=== PATIENT | male | born 1945 | race Caucasian/White ===

== ENCOUNTER 2025-02-04 13:34 | Outpatient (REF) | payer OTHER, SELFPAY ==
--- OUTSIDE RECORDS SUMMARY | 2025-02-01 11:00 | XMS_ITS | Encounter Summary ---
Author Organization [facility] Address [address] [place] [address] Phone Care Team Providers Care Coal Getter Name Role Phone Ld Thorne MD Primary Care Provider + Kody Grady MD Unavailable [phone] Morena Gongora Unavailable [phone] Reason for Referral * Consultation (Within 1 month) - New Request Specialty Diagnoses / Procedures Referred By Tyrone tao Referred To Contact Endocrinology Diagnoses Thyroid nodule Morena Gongora MBBS [address] [place] [address] Phone: tel: fax: mailto:[email or web address] [address] [place] [address] Phone: tel: Referral ID Status Reason Start Date Expiration Date V isits Requested Visits Authorized [id number] New Request 02/01/2025 02/01/2026 1 1 * MRI/CAT Scan - New Request Specialty Diagnoses / Procedures Referred By Tyrone tao Referred To Contact Radiology Diagnoses Marginal zone B-cell lymphoma Procedures CT Neck Morena Gongora MBBS [address] [place] [address] Phone: tel: fax: mailto:[email or web address] Referral ID Status Reason Start Date Expiration Date V isits Requested Visits Authorized [id number] New Request 02/01/2025 1 1 * MRI/CAT Scan - New Request Specialty Diagnoses / Procedures Referred By Contac t Referred To Contact Radiology Diagnoses Marginal zone B-cell lymphoma Procedures CT Abdomen/Pelvis Morena Gongora MBBS [address] [place] [address] Phone: tel: fax: mailto:[email or web address] Referral ID Status Reason Start Date Expiration Date V isits Requested Visits Authorized [id number] New Request 02/01/2025 1 1 * MRI/CAT Scan - New Request Specialty Diagnoses / Procedures Referred By Contac t Referred To Contact Radiology Diagnoses Marginal zone B-cell lymphoma Procedures CT Chest Morena Gongora MBBS [address] [place] [address] Phone: tel: fax: mailto:[email or web address] Referral ID Status Reason Start Date Expiration Date V isits Requested Visits Authorized [id number] New Request 02/01/2025 1 1 Reason for Visit * Reason Comments Follow Up Visit Encounter Details Date Type Department Care Team (Late st Contact Info) Description 02/01/2025 11:00 AM EST Office Visit [facility] [address] [place] [address] Morena Gongora MBBS [address] [place] [address] [email or web address] Marginal zone B-cell lymphoma (Primary Dx); Thyroid nodule Social History Tobacco Use Types Packs/Day Years Used Date Smoking Tobacco: Former Cigars 1 1998 Smokeless Tobacco: Never Comments:1.5 ppd Alcohol Use Standard Drinks/Week Comments Never 0 (1 standard drink = 0.6 oz pure alcohol) occasional; moderate in the past Education Answer Date Recorded Are you interested in more education? Not on ludin e 07/26/2022 Are you concerned about learning? Not on file 07/26/2022 No 07/26/2022 No 07/26/2022 Digital Access Answer Date Recorded No 08/22/2022 No 08/22/2022 Reliable internet access at home? Not on file 08/22/2022 Device with a working camera? Not on file Intimate Partner Violence Answer Date R ecorded Are you denied basic needs s uch as food, clothing, or medical care? No 05/28/2022 In the past 12 months have y ou been in a relationship with a person who hurts, threatens, or tries to control you? No 05/28/2022 Are you denied basic needs s uch as food, clothing, or medical care? No 05/28/2022 In the past 12 months have y ou been in a relationship with a person who hurts, threatens, or tries to control you? 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 Not on file Not on file Not on file documented as of this encounter Last Filed Vital Signs Vital Sign Reading Time Taken Comments Blood Pressure 149/70 02/01/2025 10:45 AM EST Pulse 52 02/01/2025 10:45 AM EST Temperature 36.1 C (97 F) 02/01/2025 10:45 AM EST Respiratory Rate - - Oxygen Saturation 98% 02/01/2025 10: 45 AM EST Inhaled Oxygen Concentration - - Weight 68.9 kg (151 lb 12.8 oz) 025 10:45 AM EST Height 167.8 cm (5' 6.06 ) 02/01/2025 1 0:45 AM EST Body Mass Index 24.45 02/01/2025 10:45 AM EST documented in this encounter Progress Notes * Morena Gongora MBBS - 02/01/2025 11:00 AM EST Medical Oncology/Hematology Note Medical Oncologist: DHARA Gramajo Referring Provider: Morena Gongora MBBS 02/01/2025 PATIENT ID: Steven Toledo REASON FOR VISIT: Chief Complaint Patient presents with Follow Up Visit DIAGNOSIS: 05/28/2022: 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 CURRENT TREATMENT: Surveillance as per NCCN guidelines TREATMENT HISTORY: 07/06/2022 - 03/08/2023: Single agent rituximab weekly x 4 followed by 4 maintenance doses every 2 months. Oncology History Overview Note 05/08/2023 scans: No LAD/splenomegaly 04/29/2023 follow up thyroid US: L lobe nodule 12 mm-->10 mm. No FNA recommended 11/20/2023 CT scans:No LAD/splenomegaly 07/20/2024: Surveillance CT scans: No LAD/splenomegaly 01/26/2025: Surveillance CT scans: CT neck report is back. No lAD. Left thyroid lobe nodule, unchanged. No abdominal or pelvic lymphadenopathy. No splenomegaly. Increased size of a left supraclavicular lymph node. New clustered nodularity in the left lower lobe, favors an infectious/inflammatory etiology such as aspiration. Consider a follow-up low-dose chest CT in 3 months or as per clinical protocol. Lymph Nodes: Increased left supraclavicular lymph node measuring 12 mm (4:65), previously 7 mm. Marginal zone B-cell lymphoma 06/09/2022 Initial Diagnosis Marginal zone B-cell lymphoma 07/06/2022 - 07/27/2022 Systemic Therapy Palliative; RITUXIMAB (IV/SC) WEEKLY Kody Grady MD 09/21/2022 - 03/08/2023 Systemic Therapy Palliative; RITUXIMAB (IV/SC) MAINTENANCE EVERY 8 WEEKS Kody Grady MD HISTORY OF PRESENT ILLNESS: 07/30/2024: Steven is a 79 y.o. male who returns for follow-up regarding the above-mentioned accompanied by a friend. Patient Sister was over the phone. Please see above for details regarding his prior evaluations, treatment history and updates. He is hard of hearing. Over the last few months he has been experiencing numbness of his right hand and right lower extremity causing some unsteadiness issues for which he is scheduled to see neurology soon. He recently underwent surveillance CT scans. He reports chronic bilateral ankle swelling, stable. He denies any fever, chills, night sweats or any palpable lymphadenopathy. He denies any other complaints today. FAMILY HISTORY/SOCIAL HISTORY: Lives by himself No children. Has 1 sister Smoking: Quit 50 years ago Etoh: Occasionally ALLERGIES: No Known Allergies MEDICATIONS: Current Outpatient Medications Medication Sig Dispense Refill Last Dispense acetaminophen (TYLENOL) 325 mg tablet Take 2 tablets (650 mg total) by mouth every 6 (six) hours asneeded for mild pain. 0 Unknown (outside pharmacy) amLODIPine (NORVASC) 10 MG tablet Take 10 mg by mouth daily. Unknown (patient-reported) hydroCHLOROthiazide (HYDRODIURIL) 12.5 MG tablet Take 12.5 mg by mouth daily. Unknown (patient-reported) lisinopril (PRINIVIL,ZESTRIL) 10 MG tablet Take 10 mg by mouth daily. Unknown (patient-reported) METOPROLOL TARTRATE ORAL Take 50 mg by mouth 2 (two) times a day. Unknown (patient-reported) pravastatin (PRAVACHOL) 20 MG tablet Take 20 mg by mouth daily. Unknown (patient-reported) No current facility-administered medications for this visit. Past Medical History: Diagnosis Date COVID-19 04/24/2022 paxlovid no long haul lab tab Hearing loss bilateral hearing aids that do not work well at all Hyperlipidemia Hypertensive disorder Pericardial effusion 1979 recovered fine no issues SBO (small bowel obstruction) Family History Problem Relation Age of Onset Pancreatic cancer Mother Breast cancer Sister Social History Socioeconomic History Marital status: Single Spouse name: Not on file Number of children: Not on file Years of education: Not on file Highest education level: Not on file Occupational History Occupation: paving--retired Tobacco Use Smoking status: Former Types: Cigars Start date: 1964 Quit date: 1998 Years since quittin.8 Smokeless tobacco: Never Tobacco comments: 1.5 ppd Vaping Use Vaping status: never used Substance and Sexual Activity Alcohol use: Never Comment: occasional; moderate in the past Drug use: Never Sexual activity: Not on file Other Topics Concern Not on file Social History Narrative Not on file REVIEW OF SYSTEMS: As noted above. A 10 point review of system was otherwise unremarkable VITALS SIGNS: Vitals: 02/01/25 1045 BP: (!) 149/70 BP Location: Left arm Patient Position: Sitting Cuff Size: Medium Pulse: (!) 52 Temp: 36.1 ??C (97 ??F) TempSrc: Tympanic SpO2: 98% Weight: 68.9 kg (151 lb 12.8 oz) Height: 167.8 cm (5' 6.06 ) PHYSICAL EXAM: General appearance - alert, well appearing, and in no distress Mental status - alert, oriented to person, place, and time Eyes - sclera anicteric Mouth - mucous membranes moist, pharynx normal without lesions Neck - supple, no significant adenopathy Lymphatics - no palpable lymphadenopathy Chest - clear to auscultation, no wheezes, rales or rhonchi, symmetric air entry Heart - normal rate, regular rhythm, normal S1, S2 Abdomen - soft, nontender, nondistended, no masses or organomegaly Neurological - alert, oriented, normal speech, no focal findings or movement disorder noted Extremities -+ b/l ankle edema LABS: CBC: \ / / \ No CBC past 72hr BMP: / \ No BMP past 72hr CBC Diff: Lab Results Component Value Date MCV 87.7 01/26/2025 MCH 28.6 01/26/2025 MCHC 32.7 01/26/2025 RDW 13.3 01/26/2025 MVP 9.3 01/26/2025 NRBCA 0.00 01/26/2025 DIFMET Auto 01/26/2025 NEUT 75.2 01/26/2025 LYMP 13.7 (L) 01/26/2025 MON 7.7 01/26/2025 EOSP 2.4 01/26/2025 ANEU 8.25 (H) 01/26/2025 ALYMP 1.50 01/26/2025 AMONS 0.84 01/26/2025 AEOSN 0.26 01/26/2025 ABASOP 0.07 01/26/2025 Coagulation: Cardiac markers: LFTs: RADIOLOGY: 07/20/2024: CT scan of the neck chest abdomen and pelvis Stable exam. Diverticulosis, severe atherosclerotic disease and slightly enlarged prostate gland issimilar to previous exams. No adenopathy or splenomegaly. No evidence of intrathoracic lymphadenopathy. No cervical adenopathy. 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 History of thyroid nodule DISCUSSION: I discussed all her impression, natural history disease, prognosis and further management in this regard. Low-grade lymphomas are generally incurable with conventional chemotherapy options although patientachieves remission with available standard treatment options. Patient responded very well to single agent Rituxan therapy and achieved complete remission and I reassured him about this. 07/20/2024: Surveillance CT scans did not show any evidence of lymphoma recurrence. 01/26/2025: Surveillance CT scans. CT neck did not show any lymphadenopathy. Thyroid nodule was stable. Some increase in the size of left supraclavicular lymph node, not clinically significant. Patient has been doing very well from oncological standpoint without any evidence of lymphoma recurrence and I reassured him about this. I discussed surveillance as per NCCN guidelines. RECOMMENDATIONS: I will follow-up on the official reading of his CT scans Thyroid nodule has been stable although I recommended endocrinology consultation in this regard forany future follow-ups Next surveillance CT scans in 6 months Return for follow-up in 6 months with labs and CT scans Thank you very much for allowing me to participate in this patient's care Relevant Orders Comprehensive Metabolic Panel (CMP) CBC and Differential Lactate Dehydrogenase (LDH) CT Chest CT Abdomen/Pelvis CT Neck Endocrine Thyroid nodule Relevant Orders Ambulatory referral to [facility] Endocrinology I spent more than 30 minutes during this consultation and more than half of this time was spent in direct jyry-rm-soct counseling and coordination of care. Time spent face to face, 15 minutes. Xdp-prfc-nn-face time spent, 15 minutes. I have maintained a long-term, longitudinal relationship with this patient, overseeing care of chronic conditions, including Lymphoma. This care relationship has significantly influenced my decision-making and treatment plans during today's encounter. 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 History of thyroid nodule DISCUSSION: I discussed all her impression, natural history disease, prognosis and further management in this regard. Low-grade lymphomas are generally incurable with conventional chemotherapy options although patientachieves remission with available standard treatment options. Patient responded very well to single agent Rituxan therapy and achieved complete remission and I reassured him about this. 07/20/2024: Surveillance CT scans did not show any evidence of lymphoma recurrence. 01/26/2025: Surveillance CT scans. CT neck did not show any lymphadenopathy. Thyroid nodule was stable. Some increase in the size of left supraclavicular lymph node, not clinically significant. Patient has been doing very well from oncological standpoint without any evidence of lymphoma recurrence and I reassured him about this. I discussed surveillance as per NCCN guidelines. RECOMMENDATIONS: I will follow-up on the official reading of his CT scans Thyroid nodule has been stable although I recommended endocrinology consultation in this regard forany future follow-ups Next surveillance CT scans in 6 months Return for follow-up in 6 months with labs and CT scans Thank you very much for allowing me to participate in this patient's care documented in this encounter Plan of Treatment Upcoming Encounters Date Type Department Care Team (Late st Contact Info) Description 02/01/2025 Procedure Pass , Ct Scan - [address] [address] 02/01/2025 Procedure Pass [address] [address] 02/01/2025 Procedure Pass [address] [address] 07/21/2025 12:15 PM EDT Appointment [address] [address] Morena Gongora MBBS [address] [place] [id number] [email or web address] 08/02/2025 10:40 AM EDT Office Visit [facility] at [address] [address] Morena Gongora MBBS [address] [place] [phone] [email or web address] Scheduled Orders Name Type Priority Associated Diagnoses Orde r Schedule Comprehensive Metabolic Panel (CMP) Lab Routine Marginal zone B-cell lymphoma Expected: 07/31/2025 (Approximate), Expires: 10/29/2025 CBC and Differential Lab Routine Marginal zone B-cell lymphoma Expected: 07/31/2025 (Approximate), Expires: 10/29/2025 Lactate Dehydrogenase (LDH) Lab Routine Marginal zone B-cell lymphoma Expected: 07/31/2025 (Approximate), Expires: 10/29/2025 CT Chest Imaging Routine Marginal zone B-cell lymphoma Expected: 07/31/2025 (Approximate), Expires: 10/29/2025 CT Abdomen/Pelvis Imaging Routine Marginal zone B-cell lymphoma Expected: 07/31/2025 (Approximate), Expires: 10/29/2025 CT Neck Imaging Routine Marginal zone B-cell lymphoma Expected: 07/31/2025 (Approximate), Expires: 02/01/2026 Scheduled Referrals Name Type Priority Associated Diagnoses Order Schedule Ambulatory referral to [facility] Endocrinology Outpatient Referral Routine Thyroid nodule Ordered: 02/01/2025 documented as of this encounter Visit Diagnoses Diagnosis Marginal zone B-cell lymphoma- Primary Thyroid nodule Nontoxic uninodular goiter documented in this encounter Care Teams Coal Getter Relationship Specialty Start Date End Date Ld Thorne MD [address] [place] [address] PCP - General Internal Medicine 05/13/21 Kody Grady MD [address] [place] [address] [address] [place] [address] [email or web address] Primary Oncologist Medical Oncology 05/16/22 Morena Gongora MBBS [address] [place] [address] [email or web address] Internal Medicine 01/25/25 documented as of this encounter Additional Source Comments The information contained in this document represents components of the legal health record. It is not the complete legal health record.[facility]
--- NOTE | 2025-02-04 | EMG_ITS ---
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 Right peroneal and tibial motor studies were performed. Right median and ulnar mixed sensory, radial sensory, superficial peroneal and sural sensory studies were performed and tibial H-reflex was performed. Paraspinal muscles were tested with EMG. Findings: Right median motor distal latencies was moderately prolonged with corresponding moderate prolongation of right median mixed distal latencies. Median mixed conduction velocity was moderately slow. Right peroneal motor amplitude was uutrgrho-mm-omctkc early diminished. Right sural response was absent. Tibial H-reflex was absent. Impression: 1. Sztj-ma-pcoojbtv right median neuropathy across carpal tunnel 2. Flpo-kx-ozrzigow axonal sensory motor peripheral neuropathy Codin 10[address] x2 MTDD
--- OUTSIDE RECORDS SUMMARY | 2025-02-04 16:30 | XMS_ITS | Encounter Summary ---
Author Organization [facility] Address [address] [place] [address] Phone Care Team Providers Care Registered Travel Nurse Name Role Phone Ld Thorne MD Primary Care Provider + Kody Grady MD Unavailable [phone] Jes Godoy NP Unavailable [phone] Morena Gongora MBBS Unavailable [phone] Encounter Details Date Type Department Care Team (Late st Contact Info) Description 03/07/2023 Procedure Pass [facility], Ct Scan - [address] [address] Social History Tobacco Use Types Packs/Day Years Used Date Smoking Tobacco: Former Cigars 1 965 - 1998 Smokeless Tobacco: Never Comments:1.5 ppd Alcohol [...] on file documented as of this encounter Plan of Treatment Upcoming Encounters Date Type Department Care Team (Late st Contact Info) Description 02/01/2025 Procedure Pass [address] [address] 02/01/2025 Procedure Pass [address] [address] 02/01/2025 Procedure Pass [address] [address] 07/21/2025 12:15 PM EDT Appointment [address] [address] Morena Gongora MBBS [address] [place] [phone] [email or web address] 08/02/2025 10:40 AM EDT Office Visit [facility] at [address] [address] Morena Gongora MBBS [address] [place] [address] [email or web address] documented as of this encounter Visit Diagnoses Not on filedocumented in this encounter Care Teams Registered Travel Nurse Relationship Specialty Start Date End Date Ld Thorne MD [address] [place] [address] PCP - General Internal Medicine 05/13/21 Kody Grady MD [address] [place] [address] [address] [place] [address] [email or web address] Primary Oncologist Medical Oncology 05/16/22 Jes Godoy NP [address] [place] [address] [email or web address] Nurse Practitioner Medical Oncology 06/29/22 04/01/24 Morena Gongora MBBS [address] [place] [phone] [email or web address] Internal Medicine 01/25/25 documented as of this encounter Additional Source Comments The information contained in this document represents components of the legal health record. It is not the complete legal health record.[facility]
--- OUTSIDE RECORDS SUMMARY | 2025-02-04 16:30 | XMS_ITS | Encounter Summary ---
Author Organization [facility] Address [address] [place] [address] Phone Care Team Providers Care Carpenter Assistant Name Role Phone Ld Thorne MD Primary Care Provider + Kody Grady MD Unavailable [phone] Morena Gongora Unavailable [phone] Encounter Details Date Type Department Care Team (Late st Contact Info) Description 07/30/2024 Procedure Pass [facility], Ct Scan - [facility] [address] [place] [address] Social History Tobacco Use Types Packs/Day Years Used Date Smoking Tobacco: Former Cigars 1998 Smokeless Tobacco: Never Comments:1.5 ppd Alcohol [...] st Contact Info) Description 02/01/2025 Procedure Pass [address] [address] 02/01/2025 Procedure Pass [address] [address] 02/01/2025 Procedure Pass [address] [address] 07/21/2025 12:15 PM EDT Appointment [address] [address] Morena Gongora MBBS [address] [place] [phone] [email or web address] 08/02/2025 10:40 AM EDT Office Visit [facility] at [address] [address] Morena Gongora MBBS [address] [place] [phone] [email or web address] documented as of this encounter Visit Diagnoses Not on filedocumented in this encounter Care Teams Carpenter Assistant Relationship Specialty Start Date End Date Ld Thorne MD [address] [place] [address] PCP - General Internal Medicine 05/13/21 Kody Grady MD [address] [place] [address] [address] [place] [address] [email or web address] Primary Oncologist Medical Oncology 05/16/22 Morena Gongora MBBS [address] [place] [phone] [email or web address] Internal Medicine 01/25/25 documented as of this encounter Additional Source Comments The information contained in this document represents components of the legal health record. It is not the complete legal health record.[facility]
--- OUTSIDE RECORDS SUMMARY | 2025-02-04 16:30 | XMS_ITS | Encounter Summary ---
Author Organization [facility] Address [address] [facility] [address] [place] [address] Phone Care Team Providers Care Esthetician And Manager Medical Spa Name Role Phone Ld Thorne MD Primary Care Provider + Kody Grady MD Unavailable [phone] Morena Gongora Unavailable [phone] Encounter Details Date Type Department Care Team (Late st Contact Info) Description 07/30/2024 Procedure Pass [facility], Ct Scan - [facility] [address] [place] [address] Social History Tobacco Use Types Packs/Day Years [...] st Contact Info) Description 02/01/2025 Procedure Pass [address] [address] 02/01/2025 Procedure Pass [address] [address] 02/01/2025 Procedure Pass [address] [address] 07/21/2025 12:15 PM EDT Appointment [address] [address] Morena Gongora MBBS [address] [place] [address] [email or web address] 08/02/2025 10:40 AM EDT Office Visit [facility] at [address] [address] Morena Gongora MBBS [address] [place] [address] [email or web address] documented as of this encounter Visit Diagnoses Not on filedocumented in this encounter Care Teams Esthetician And Manager Medical Spa Relationship Specialty Start Date End Date Ld Thorne MD [address] [place] [address] PCP - General Internal Medicine 05/13/21 Kody Grady MD [address] [place] [address] [address] [place] [address] [email or web address] Primary Oncologist Medical Oncology 05/16/22 Morena Gongora MBBS [address] [place] [address] [email or web address] Internal Medicine 01/25/25 documented as of this encounter Additional Source Comments The information contained in this document represents components of the legal health record. It is not the complete legal health record.[facility]
--- OUTSIDE RECORDS SUMMARY | 2025-02-04 16:30 | XMS_ITS | Encounter Summary ---
Author Organization [facility] Address [address] [place] [address] Phone Care Team Providers Care Boat Finisher Name Role Phone Ld Thorne MD Primary Care Provider + Kody Grady MD Unavailable [phone] Jes Godoy NP Unavailable [phone] Morena Gongora MBBS Unavailable Encounter Details Date Type Department Care Team (Late st Contact Info) Description 04/19/2022 Procedure Pass [facility] Endoscopy Admitting Dept Virtual Department [address] [place] [address] Social History Tobacco Use Types Packs/Day Years Used Date Smoking Tobacco: Former Cigars Q uit: 1998 Smokeless Tobacco: Never Alcohol Use Standard Drinks/Week Comments Yes 5 (1 standard drink = 0.6 oz pur e alcohol) Sex and Gender Information Value Date Recorded Sex Assigned at Male 05/11/2021 1:04 PM EST Legal Sex Male 12:35 PM EST Gender Identity Male 05/11/2021 1:04 PM EST Sexual Orientation Not on file documented as of this encounter Plan of Treatment Upcoming Encounters Date Type Department Care Team (Late st Contact Info) Description 02/01/2025 Procedure Pass [address] [address] 02/01/2025 Procedure Pass [address] [address] 02/01/2025 Procedure Pass [facility], Ct [address] [address] 07/21/2025 12:15 PM EDT Appointment [address] [address] Morena Gongora MBBS [address] [place] [address] [email or web address] 08/02/2025 10:40 AM EDT Office Visit [facility] at [address] [address] Morena Gongora [address] [address] [email or web address] documented as of this encounter Visit Diagnoses Not on filedocumented in this encounter Additional Health Concerns Infection Onset Date Last Indicated Resolved Time CoV-Risk 04/24/2022 04/24/2022 04/24/2022 11:4 5 AM EST COVID-19 04/24/2022 04/24/2022 05/15/2022 1:23 AM EST documented as of this encounter Care Teams Boat Finisher Relationship Specialty Start Date End Date Ld Thorne MD [address] [place] [address] PCP - General Internal Medicine 05/13/21 Kody Grady MD [address] [place] [address] [address] [place] [address] [email or web address] Primary Oncologist Medical Oncology 05/16/22 Jes Godoy NP [address] [place] [address] [email or web address] Nurse Practitioner Medical Oncology 06/29/22 04/01/24 Morena Gongora MBBS [address] [place] [address] [email or web address] Internal Medicine 01/25/25 documented as of this encounter Additional Source Comments The information contained in this document represents components of the legal health record. It is not the complete legal health record.[facility]
--- OUTSIDE RECORDS SUMMARY | 2025-02-04 16:30 | XMS_ITS | Encounter Summary ---
Author Organization [facility] Address [address] [facility] [address] [facility] [address] [place] [address] Phone Care Team Providers Care Agriscience Teacher Name Role Phone Ld Thorne MD Primary Care Provider + Kody Grady MD Unavailable [phone] Morena Gongora Unavailable Encounter Details Date Type Department Care Team (Late st Contact Info) Description 07/30/2024 Procedure Pass [facility], Ct Scan - [facility] [address] [place] [address] Social History Tobacco Use Types Packs/Day Years [...] st Contact Info) Description 02/01/2025 Procedure Pass [address] [address] 02/01/2025 Procedure Pass [address] [address] 02/01/2025 Procedure Pass [address] [address] 07/21/2025 12:15 PM EDT Appointment [address] [address] Morena Gongora MBBS [address] [place] [address] [email or web address] 08/02/2025 10:40 AM EDT Office Visit [facility] at [address] [address] Morena Gongora MBBS [address] [place] [address] [email or web address] documented as of this encounter Visit Diagnoses Not on filedocumented in this encounter Care Teams Agriscience Teacher Relationship Specialty Start Date End Date Ld Thorne MD [address] [place] [address] PCP - General Internal Medicine 05/13/21 Kody Grady MD [address] [place] [address] [address] [place] [address] [email or web address] Primary Oncologist Medical Oncology 05/16/22 Morena Gongora MBBS [address] [place] [address] [email or web address] Internal Medicine 01/25/25 documented as of this encounter Additional Source Comments The information contained in this document represents components of the legal health record. It is not the complete legal health record.[facility]
--- OUTSIDE RECORDS SUMMARY | 2025-02-04 16:31 | XMS_ITS | Encounter Summary ---
Author Organization [facility] Address [address] [facility] [address] [place] [address] Phone Care Team Providers Care Exhaust Emissions Inspector Name Role Phone Ld Thorne MD Primary Care Provider + Kody Grady MD Unavailable [phone] Morena Gongora Unavailable Encounter Details Date Type Department Care Team (Late st Contact Info) Description 04/09/2024 Procedure Pass [facility], Ct Scan - [facility] 30 [place] [address] Social History Tobacco Use Types Packs/Day Years [...] st Contact Info) Description 02/01/2025 Procedure Pass [address] [address] 02/01/2025 Procedure Pass [address] [address] 02/01/2025 Procedure Pass [address] [address] 07/21/2025 12:15 PM EDT Appointment [address] [address] Morena Gongora MBBS [address] [place] [address] [email or web address] 08/02/2025 10:40 AM EDT Office Visit [facility] at [address] [address] Morena Gongora MBBS [address] [place] [address] [email or web address] documented as of this encounter Visit Diagnoses Not on filedocumented in this encounter Care Teams Exhaust Emissions Inspector Relationship Specialty Start Date End Date dL Thorne MD [address] [place] [address] PCP - General Internal Medicine 05/13/21 Kody Grady MD [address] [place] [address] [address] [place] [address] [email or web address] Primary Oncologist Medical Oncology 05/16/22 Morena Gongora MBBS [address] [place] [address] [email or web address] Internal Medicine 01/25/25 documented as of this encounter Additional Source Comments The information contained in this document represents components of the legal health record. It is not the complete legal health record.[facility]
--- OUTSIDE RECORDS SUMMARY | 2025-02-04 16:31 | XMS_ITS | Encounter Summary ---
Author Organization [facility] Address [address] [facility] [address] [place] [address] Phone Care Team Providers Care Rn Clinical Review Name Role Phone Ld Thorne MD Primary Care Provider + Kody Grady MD Unavailable [phone] Jes Godoy NP Unavailable [phone] Morena Gongora MBBS Unavailable Encounter Details Date Type Department Care Team (Late st Contact Info) Description 05/28/2022 Procedure Pass [facility] 30 [place] [address] Social History Tobacco Use Types Packs/Day Years Used Date Smoking Tobacco: Former Cigars 1 965 - 1998 Smokeless Tobacco: Never Comments:1.5 ppd Alcohol Use Standard Drinks/Week Comments Never 0 (1 standard drink = 0.6 oz pure alcohol) occasional; moderate in the past Intimate Partner Violence Answer Date R ecorded [...] st Contact Info) Description 02/01/2025 Procedure Pass [address] [address] 02/01/[address] [address] 02/01/[address] [address] 07/21/2025 12:15 PM EDT Appointment [address] [address] Morena Gongora MBBS [address] [place] [address] [email or web address] 08/02/2025 10:40 AM EDT Office Visit [facility] at [address] [address] Morena Gongora MBBS [address] [place] [address] [email or web address] documented as of this encounter Visit Diagnoses Not on filedocumented in this encounter Care Teams Rn Clinical Review Relationship Specialty Start Date End Date Ld Thorne MD [address] [place] [address] PCP - General Internal Medicine 05/13/21 Kody Grady MD [address] [place], [place] [address]A [place] [address] [email or web address] Primary Oncologist Medical Oncology 05/16/22 Jes Godoy, WAREHOUSE TRAINER [address] [place] [address] [email or web address] Nurse Practitioner Medical Oncology 06/29/22 04/01/24 Morena Gongora MBBS 30 [place] [address] [email or web address] Internal Medicine 01/25/25 documented as of this encounter Additional Source Comments The information contained in this document represents components of the legal health record. It is not the complete legal health record.[facility]
--- OUTSIDE RECORDS SUMMARY | 2025-02-04 16:31 | XMS_ITS ---
Author Organization [facility] Address [address] [place] [address] Phone Care Team Providers Care Housekeeping Manager Name Role Phone Ld Thorne MD Primary Care Provider + Kody Grady MD Unavailable [phone] Morena Gongora Unavailable [phone] Active Problems Patient Care Coordination No te Formatting of this note migh t be different from the original. 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 History of thyroid nodule DISCUSSION: I discussed all her impression, natural history disease, prognosis and further management in this regard. Low-grade lymphomas are generally incurable with conventional chemotherapy options although patient achieves remission with available standard treatment options. 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 DISCUSSION: I discussed all her impression, natural history disease, prognosis and further management in this regard. Low-grade lymphomas are generally incurable with conventional chemotherapy options although patient achieves remission with available standard treatment options. Patient responded very well to single agent Rituxan therapy and achieved complete remission and I reassured him about this. 07/20/2024: Surveillance CT scans did not show any evidence of lymphoma recurrence. Patient has been doing very well from oncological standpoint without any evidence of lymphoma recurrence and I reassured him about this. I discussed surveillance as per NCCN guidelines. RECOMMENDATIONS: Next surveillance CT scans in 6 months Return for follow-up in 6 months with labs and CT scans Thank you very much for allowing me to participate in this patient's care Lymphadenopathy 05/16/2022 Overview (06/06/2022): 05/11/2021 CT abd: 1.Small bowel obstruction with transition point at the right inguinal hernia neck with minimal free fluid within the hernial sac. No pneumoperitoneum. No evidence of bowel ischemia. 2.Large right inguinal hernia containing fat, small bowel, cecum, and the appendix. 3.Small fat-containing left inguinal hernia. 4.Colonic diverticulosis with no diverticulitis. 5.Splenomegaly--spleen 17 cm 6.Multistation prominent abdominal lymph nodes, mildly enlarged at the periportal and portacaval and paracaval stations, may be reactive: Multiple prominent periportal and portacaval and paracaval lymph nodes measuring up to 1.6 mm short axis (3:25). Additional prominent subcentimeter aortocaval, periaortic, mesenteric lymph nodes. 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 The lack of CD5 and CD10 expression does not favor a diagnosis of chronic lymphocytic leukemia/small lymphocytic lymphoma (SLL/CLL), mantle cell, or follicular lymphoma. Correlation with morphologic evaluation of the original tissue sections and other relevant laboratory studies is recommended. MYD 88, SOX 11 and cyclin D-1 all NEG Path c/w MZL Post-operative state 01/11/2022 Small bowel obstruction 05/11/2021 Current Treatment and Therapy Plans No current plan information found. Past Treatment and Therapy Plans TREATMENT PLAN Plan Name Start Date Discontinue Date Treatment Medications Discontinue Reason Plan Provider Cycles RITUXIMAB (IV/SC) MAINTENANCE EVERY 8 WEEKS 3 10/04/2024 riTUXimab-hyal uronidase,talia n (RITUXAN HYCELA) a. Therapy Complete Kody Grady MD 4 of 4 cycles started RITUXIMAB (IV/SC) WEEKLY 07/06/2022 09/20/2022 riTUXimab-abbs (TRUXIMA) IVPB 250 mL (250 mg - 1000 mg) (QS Base) BagriTUXimab-h yaluronidase,h uman (RITUXAN HYCELA) a. Therapy Complete Kody Grady MD 1 of 1 cycle started
--- OUTSIDE RECORDS SUMMARY | 2025-02-04 16:31 | XMS_ITS | Encounter Summary ---
Author Organization [facility] Address [address] [facility] [address] [facility] [address] [place] [address] Phone Care Team Providers Care Viscosity Worker Name Role Phone Ld Thorne MD Primary Care Provider + Kody Grady MD Unavailable Jes Godoy NP Unavailable [phone] Morena Gongora MBBS Unavailable Encounter Details Date Type Department Care Team (Late st Contact Info) Description 05/24/2022 Procedure Pass [facility] [address] [place] [address] Social History Tobacco Use Types Packs/Day Years [...] st Contact Info) Description 02/01/2025 Procedure Pass [address] [address] 02/01/[address] [address] 02/01/[address] [address] 07/21/2025 12:15 PM EDT Appointment [address] [address] Morena Gongora MBBS [address] [place] [address] [email or web address] 08/02/2025 10:40 AM EDT Office Visit [facility] at [address] [address] Morena Gongora MBBS [address] [place] [address] [email or web address] documented as of this encounter Visit Diagnoses Not on filedocumented in this encounter Care Teams Viscosity Worker Relationship Specialty Start Date End Date Ld Thorne MD [address] [place] [address] PCP - General Internal Medicine 05/13/21 Kody Grady MD [address] [place], [place] [address]A [place] [address] [email or web address] Primary Oncologist Medical Oncology 05/16/22 Jes Godoy, LACE INSPECTOR [address] [place] [address] [email or web address] Nurse Practitioner Medical Oncology 06/29/22 04/01/24 Morena Gongora MBBS [address] [place] [address] [email or web address] Internal Medicine 01/25/25 documented as of this encounter Additional Source Comments The information contained in this document represents components of the legal health record. It is not the complete legal health record.[facility]
--- OUTSIDE RECORDS SUMMARY | 2025-02-04 16:31 | XMS_ITS | Encounter Summary ---
Author Organization [facility] Address [address] [facility] [address] [place] [address] Phone Care Team Providers Care Elementary Teacher Name Role Phone Ld Thorne MD Primary Care Provider + Kody Grady MD Unavailable [phone] Morena Gongora Unavailable [phone] Reason for Referral * MRI/CAT Scan - Closed Specialty Diagnoses / Procedures Referred By Contac t Referred To Contact Radiology Diagnoses Chest pain, unspecified type Procedures NC Stress Result for Nuclear Stress Test Ld Thorne MD [address] [place] [address] Phone: tel: fax: Referral ID Status Reason Start Date Expiration Date Visits Re quested Visits Authorized [id number] Closed 10/21/2024 10/21/2024 1 1 Encounter Details Date Type Department Care Team (Late st Contact Info) Description 10/21/2024 Ancillary Orders Virtual Department [address] [place] [address] Ld Thorne MD [address] [place] [address] Chest pain, unspecified type (Primary Dx) Social History Tobacco Use Types Packs/Day Years Used Date Smoking Tobacco: Former Cigars 1 5 1998 Smokeless Tobacco: Never Comments:1.5 ppd Alcohol [...] st Contact Info) Description 02/01/2025 Procedure Pass [address] [address] 02/01/2025 Procedure Pass [address] [address] 02/01/2025 Procedure Pass [address] [address] 07/21/2025 12:15 PM EDT Appointment [address] [address] Morena Gongora, CHARLEY [address] [place] [address] [email or web address] 08/02/2025 10:40 AM EDT Office Visit [facility] [address] [place] [address] Morena Gongora, CHARLEY [address] [place] [address] [email or web address] documented as of this encounter Results * NC Stress Result for Nuclear Stress Test (10/21/2024 11:00 AM EDT) Max Predicted Heart Rate 143 bpm [facility] Max BP Systolic 158 mmHg [facility] Max BP Diastolic 74 mmHg [facility] Max HR 118 BPM [facility] Resting HR 88 BPM [facility] Resting BP Systolic 138 mmHg [facility] Resting BP Diastolic 38 mmHg [facility] Peak METS 1.6 METS [facility] Peak HR 86 BPM [facility] Anatomical Region Laterality Modality Heart Other 10/21/2024 10:1 2 AM EDT 10/21/2024 11:00 AM EDT Narrative 10/21/2024 11:39 AM EDT Stress Findings The resting heart rate was 88 BPM. The resting BP was 138/38 mmHg. A peak heart rate of 86 BPM was achieved. ECG REPORT- 0.4 mg Regadenoson given IV push over 10 seconds as per protocol immediately followed by injection of Tc99m Sestamibi by [employer] biotechnologist. Test done as a pharmacologic test due to patient's inability to exercise on the treadmill. Test was done under Walking Regadenoson protocol. 1. EKG - Baseline EKG showed normal sinus rhythm with multiple isolated PVCs. After the injection of Regadenoson, there were no EKG changes that met strict criteria for ischemia. 2. SYMPTOMS - After the injection of Regadenoson, the patient remained asymptomatic. 3. PHYSIOLOGY - Resting HR was 76 bpm. After Regadenoson injection, HR 118 bpm. 4. ARRHYTHMIAS - Occasional isolated PVCs. Conclusion - There were no ischemic EKG changes with pharmacologic testing. Nuclear images pending and will be reported separately. See attached stress report for full details. Yesenia Cutler PA-C with Dr. Rm. Response to Stress The patient exercised for minutes and seconds, achieving 1.6 METS at peak exercise. Baseline blood pressure was 138/38 mmHg, and baseline heart rate was 88 bpm. The patient achieved a peak heart rate of 86 bpm, which is% of their maximum predicted heart rate. Ld Thorne MD CV [place] CARDIAC Final Re sult documented in this encounter Visit Diagnoses Diagnosis Chest pain, unspecified type- Primary Chest pain, unspecified type documented in this encounter Care Teams Elementary Teacher Relationship Specialty Start Date End Date Ld Thorne MD [address] [place] [address] PCP - General Internal Medicine 05/13/21 Kody Grady MD [address] [place] [address] [address] [place] [address] [email or web address] Primary Oncologist Medical Oncology 05/16/22 Morena Gongora MBBS [address] [place] [address] [email or web address] Internal Medicine 01/25/25 documented as of this encounter Additional Source Comments The information contained in this document represents components of the legal health record. It is not the complete legal health record.[facility]
--- OUTSIDE RECORDS SUMMARY | 2025-02-04 16:31 | XMS_ITS | Encounter Summary ---
Author Organization [facility] Address [address] [place] [address] Phone Care Team Providers Care Computer Recycling Worker Name Role Phone Ld Thorne MD Primary Care Provider + Kody Grady MD Unavailable [phone] Jes Godoy NP Unavailable [phone] Morena Gongora MBBS Unavailable Encounter Details Date Type Department Care Team (Late st Contact Info) Description 03/07/2023 Procedure Pass [facility], Ct Scan - [address] [address] Social History Tobacco Use Types Packs/Day Years [...] st Contact Info) Description 02/01/2025 Procedure Pass [address] [address] 02/01/2025 Procedure Pass [address] [address] 02/01/2025 Procedure Pass [address] [address] 07/21/2025 12:15 PM EDT Appointment [address] [address] Morena Gongora MBBS [address] [place] [address] [email or web address] 08/02/2025 10:40 AM EDT Office Visit [facility] at [address] [address] Morena Gongora MBBS [address] [place] [address] [email or web address] documented as of this encounter Visit Diagnoses Not on filedocumented in this encounter Care Teams Computer Recycling Worker Relationship Specialty Start Date End Date Ld Thorne MD [address] [place] [address] PCP - General Internal Medicine 05/13/21 Kody Grady MD [address] [place] [address] [address] [place] [address] [email or web address] Primary Oncologist Medical Oncology 05/16/22 Jes Godoy NP [address] [place] [address] [email or web address] Nurse Practitioner Medical Oncology 06/29/22 04/01/24 Morena Gongora MBBS [address] [place] [address] [email or web address] Internal Medicine 01/25/25 documented as of this encounter Additional Source Comments The information contained in this document represents components of the legal health record. It is not the complete legal health record.[facility]
--- OUTSIDE RECORDS SUMMARY | 2025-02-04 16:31 | XMS_ITS | Encounter Summary ---
Author Organization [facility] Address [address] [place] [address] Phone Care Team Providers Care Superintendent Job Name Role Phone Ld Thorne MD Primary Care Provider + Kody Grady MD Unavailable [phone] Jes Godoy NP Unavailable [phone] Morena Gongora MBINO Unavailable [phone] Encounter Details Date Type Department Care Team (Late st Contact Info) Description 05/28/2022 Procedure Pass [facility], Ct Scan - [address] [address] Social History Tobacco Use Types Packs/Day Years Used Date Smoking Tobacco: Former Cigars - 1998 Smokeless Tobacco: Never Comments:1.5 ppd [...] (Late st Contact Info) Description 02/01/[address] [address] 02/01/[address] [address] 02/01/[address] [address] 07/21/2025 12:15 PM EDT Appointment [address] [address] Morena Gongora MBBS [address] [place] [address] [email or web address] 08/02/2025 10:40 AM EDT Office Visit [facility] at [address] [address] Morena Gongora MBBS [address] [place] [address] [email or web address] documented as of this encounter Visit Diagnoses Not on filedocumented in this encounter Care Teams Superintendent Job Relationship Specialty Start Date End Date Ld Thorne MD [address] [place] [address] PCP - General Internal Medicine 05/13/21 Kody Grady MD [address] [place] [address] [place] [address] [email or web address] Primary Oncologist Medical Oncology 05/16/22 Jes Godoy, JORI [address] [place] [address] [email or web address] [email or web address] Nurse Practitioner Medical Oncology 06/29/22 04/01/24 Morena Gongora MBBS [address] [place] [address] [email or web address] Internal Medicine 01/25/25 documented as of this encounter Additional Source Comments The information contained in this document represents components of the legal health record. It is not the complete legal health record.[facility]
--- OUTSIDE RECORDS SUMMARY | 2025-02-04 16:31 | XMS_ITS | Encounter Summary ---
Author Organization [facility] Address [address] [place] [address] Phone Care Team Providers Care Vendor Relationship Manager Name Role Phone Ld Thorne MD Primary Care Provider + Kody Grady MD Unavailable [phone] Jes Godoy NP Unavailable [phone] Morena Gongora MBBS Unavailable [phone] Encounter Details Date Type Department Care Team (Late st Contact Info) Description 03/07/2023 Procedure Pass [facility], Ct Scan - [address] [address] Social History Tobacco Use Types Packs/Day Years [...] Contact Info) Description 02/01/2025 Procedure Pass [address] [address] 02/01/2025 Procedure Pass [address] [address] 02/01/2025 Procedure Pass [address] [address] 07/21/2025 12:15 PM EDT Appointment [address] [address] Morena Gongora MBBS [address] [place] [address] [email or web address] 08/02/2025 10:40 AM EDT Office Visit [facility] at [address] [address] Morena Gongora MBBS [address] [place] [address] [email or web address] documented as of this encounter Visit Diagnoses Not on filedocumented in this encounter Care Teams Vendor Relationship Manager Relationship Specialty Start Date End Date Ld Thorne MD [address] [place] [address] PCP - General Internal Medicine 05/13/21 Kody Grady MD [address] [place] [address] [address] [place] [address] [email or web address] Primary Oncologist Medical Oncology 05/16/22 Jes Godoy NP [address] [place] [address] [email or web address] Nurse Practitioner Medical Oncology 06/29/22 04/01/24 Morena Gongora MBBS [address] [place] [address] [email or web address] Internal Medicine 01/25/25 documented as of this encounter Additional Source Comments The information contained in this document represents components of the legal health record. It is not the complete legal health record.[facility]
--- OUTSIDE RECORDS SUMMARY | 2025-02-04 16:32 | XMS_ITS | Encounter Summary ---
Author Organization [facility] Address [address] [place] [address] Phone Care Team Providers Care Slot Supervisor Name Role Phone Ld Thorne MD Primary Care Provider + Kody Grady MD Unavailable Jes Godoy NP Unavailable [phone] Morena Gongora MBBS Unavailable Encounter Details Date Type Department Care Team (Late st Contact Info) Description 01/11/2022 Procedure Pass [place] Admitting Dept - Virtual Department [address] [place] [address] Social History Tobacco Use Types Packs/Day Years [...] on file documented as of this encounter Functional Status * Calculated C-SSRS Risk Score (Lifetime/Recent) Answer Date of Assessment Author No Risk Indicated 01/11/2022 1:36 PM EDT Joelle Ortega RN * [place] Suicide Severity Rating Scale (Screener/Recent Self-Report) Question Answer Date of Assessment Author 1. Wish to be (Past 1 Month) No 01/11/2022 1:36 PM EDT Joelle Sheriff RN 2. Non-Specific Active Suicidal Thoughts (Past 1 Month) No 01/11/2022 1:36 PM EDT Joelle Sheriff RN 6. Suicidal Behavior (Lifetime) No 01/11/2022 1:36 PM EDT Joelle Sheriff RN documented as of this encounter Plan of Treatment Upcoming Encounters Date Type Department Care Team (Late st Contact Info) Description 02/01/2025 Procedure Pass [address] [address] 02/01/2025 Procedure Pass [address] [address] 02/01/2025 Procedure Pass [address] [address] 07/21/2025 12:15 PM EDT Appointment [address] [address] Morena Gongora MBBS [address] [place] [address] [email or web address] 08/02/2025 10:40 AM EDT Office Visit [facility] at [address] [address] Morena Gongora MBBS [address] [place] [address] [email or web address] documented as of this encounter Visit Diagnoses Not on filedocumented in this encounter Additional Health Concerns Infection Onset Date Last Indicated Resolved Time CoV-Risk 04/24/2022 04/24/2022 04/24/2022 11:4 5 AM EST COVID-19 04/24/2022 04/24/2022 05/15/2022 1:23 AM EST documented as of this encounter Care Teams Slot Supervisor Relationship Specialty Start Date End Date Ld Thorne MD [address] [place] [address] PCP - General Internal Medicine 05/13/21 Kody Grady MD [address] [place], [place] [address] [address] [place] [address] [email or web address] Primary Oncologist Medical Oncology 05/16/22 Jes Godoy NP [address] [place] [address] [email or web address] Nurse Practitioner Medical Oncology 06/29/22 04/01/24 Morena Gongora MBBS [address] [place] [address] [email or web address] Internal Medicine 01/25/25 documented as of this encounter Additional Source Comments The information contained in this document represents components of the legal health record. It is not the complete legal health record.[facility]
--- OUTSIDE RECORDS SUMMARY | 2025-02-04 16:32 | XMS_ITS | Encounter Summary ---
Author Organization [facility] Address [address] [place] [address] Phone Care Team Providers Care Fruit Thinner Name Role Phone Ld Thorne MD Primary Care Provider + Kody Grady MD Unavailable [phone] Morena Gongora Unavailable [phone] Encounter Details Date Type Department Care Team (Late st Contact Info) Description 04/09/2024 Procedure Pass [facility], Ct Scan - [facility] [address] [place] [address] Social History Tobacco Use Types Packs/Day Years [...] st Contact Info) Description 02/01/2025 Procedure Pass [address] [address] 02/01/2025 Procedure Pass [address] [address] 02/01/2025 Procedure Pass [address] [address] 07/21/2025 12:15 PM EDT Appointment [address] [address] Morena Gongora MBBS [address] [place] [address] [email or web address] 08/02/2025 10:40 AM EDT Office Visit [facility] at [address] [address] Morena Gongora MBBS [address] [place] [address] [email or web address] documented as of this encounter Visit Diagnoses Not on filedocumented in this encounter Care Teams Fruit Thinner Relationship Specialty Start Date End Date Ld Thorne MD [address] [place] [address] PCP - General Internal Medicine 05/13/21 Kody Grady MD [address] [place] [address] [address] [place] [address] [email or web address] Primary Oncologist Medical Oncology 05/16/22 Morena Gongora MBBS [address] [place] [address] [email or web address] Internal Medicine 01/25/25 documented as of this encounter Additional Source Comments The information contained in this document represents components of the legal health record. It is not the complete legal health record.[facility]
--- OUTSIDE RECORDS SUMMARY | 2025-02-04 16:32 | XMS_ITS | Encounter Summary ---
Author Organization [facility] Address [address] [place] [address] Phone Care Team Providers Care Livestock Haulier Name Role Phone Ld Thorne MD Primary Care Provider + Kody Grady MD Unavailable Morena Gongora Unavailable [phone] Reason for Referral * MRI/CAT Scan - Closed Specialty Diagnoses / Procedures Referred By Tyrone tao Referred To Contact Radiology Diagnoses Chest pain, unspecified type Procedures NC Myocardial Perfusion Pharmacologic Stress Multiple CHG MYOCARDIAL SPECT MULTIPLE STUDIES Ld Thorne MD [address] [place] [address] Phone: tel: fax: Referral ID Status Reason Start Date Expiration Date Visits Re quested Visits Authorized [id number] Closed 08/27/2024 10/26/2024 4 4 Encounter Details Date Type Department Care Team (Latest Contact Info) Description 08/27/2024 Transcribe Orders Virtual Department [address] [place] [address] Ld Thorne MD [address] [place] [address] Chest pain, unspecified type (Primary Dx) Social [...] st Contact Info) Description 02/01/2025 Procedure Pass [address] [address] 02/01/2025 Procedure Pass [address] [address] 02/01/2025 Procedure Pass [address] [address] 07/21/2025 12:15 PM EDT Appointment [address] [address] Morena Gongora MBBS [address] [place] [address] [email or web address] 08/02/2025 10:40 AM EDT Office Visit [facility] [address] [place] [address] Morena Gongora MBBS [address] [place] [address] [email or web address] documented as of this encounter Results * NC Myocardial Perfusion Pharmacologic Stress Multiple (10/21/2024 11:28 AM EDT) Anatomical Region Laterality Modality Heart, Vascular Nuclear Medicine 10/21/2024 10:0 2 PM EDT Impressions 10/21/2024 10:08 PM EDT Left ventricular ejection fraction: Greater than 75% Myocardial perfusion images demonstrate no evidence of ischemia or infarction. Narrative 10/21/2024 10:08 PM EDT EXAM: NC MYOCARDIAL PERFUSION PHARMACOLOGIC STRESS MULTIPLE CLINICAL INDICATION: Outside Radiology Order; chest pain. TECHNIQUE: According to standard departmental protocol, the patient was injected with 11.2 mCi of TC-99M Sestamibi IV at rest and ungated SPECT myocardial images were obtained. Subsequently, a stress test was performed and 34.8 mCi of TC-99M Sestamibi was injected at peak stress. After 30 to 60 minutes, gated SPECT images were obtained and assessed for myocardial perfusion and left ventricular function. Stress EKG findings were interpreted by cardiology and are reported separately. Please refer to that report in Epic. COMPARISON: None. FINDINGS: PERFUSION: Myocardial perfusion images show no evidence of scar or ischemia. VENTRICULAR SIZE AND FUNCTION: Left ventricular ejection fraction within normal limits. Left ventricular size within normal limits. LV EF: Greater than 75% TID Ratio: 0.9 IMAGE QUALITY: Good. Diaphragmatic attenuation and gastric uptake inferiorly. Procedure Note Santiago Ramos MD - 10/21/2024 EXAM: NC MYOCARDIAL PERFUSION PHARMACOLOGIC STRESS MULTIPLE CLINICAL INDICATION: Outside Radiology Order; chest pain. TECHNIQUE: According to standard departmental protocol, the patient wasinjected with 11.2 mCi of TC-99M Sestamibi IV at rest and ungated SPECTmyocardial images were obtained. Subsequently, a stress test was performedand 34.8 mCi of TC-99M Sestamibi was injected at peak stress. After 30 to60 minutes, gated SPECT images were obtained and assessed for myocardialperfusion and left ventricular function. Stress EKG findings were interpreted by cardiology and are reportedseparately. Please refer to that report in Epic. COMPARISON: None. FINDINGS: PERFUSION: Myocardial perfusion images show no evidence of scar orischemia. VENTRICULAR SIZE AND FUNCTION: Left ventricular ejection fraction withinnormal limits. Left ventricular size within normal limits. LV EF: Greater than 75% TID Ratio: 0.9 IMAGE QUALITY: Good. Diaphragmatic attenuation and gastric uptakeinferiorly. IMPRESSION: Left ventricular ejection fraction: Greater than 75% Myocardial perfusion images demonstrate no evidence of ischemia orinfarction. Ld Thorne MD CV NM CARDIAC Final Re sult documented in this encounter Visit Diagnoses Diagnosis Chest pain, unspecified type- Primary Chest pain, unspecified type documented in this encounter Care Teams Livestock Haulier Relationship Specialty Start Date End Date Ld Thorne MD [address] [place] [address] PCP - General Internal Medicine 05/13/21 Kody Grady MD [address] [place] [address] [address] [place] [address] [email or web address] Primary Oncologist Medical Oncology 05/16/22 Morena Gongora MBBS [address] [place] [address] [email or web address] Internal Medicine 01/25/25 documented as of this encounter Additional Source Comments The information contained in this document represents components of the legal health record. It is not the complete legal health record.[facility]
--- OUTSIDE RECORDS SUMMARY | 2025-02-04 16:32 | XMS_ITS | Encounter Summary ---
Author Organization [facility] Address [address] [place] [address] Phone Care Team Providers Care Rn Pediatric Icu Name Role Phone Pcp, Unknown Primary Care Provider Unavailabl Ld Khanna MD Primary Care Provider + Kody Grady MD Unavailable Jes Godoy NP Unavailable [phone] Morena Gongora Unavailable Encounter Details Date Type Department Care Team (Late st Contact Info) Description 05/11/2021 Procedure Pass [place] Admitting Dept - Virtual Department [address] [place] [address] Social History Tobacco Use Types Packs/Day Years Used Date Smoking Tobacco: Never Assessed Sex and Gender Information Value Date Recorded Sex Assigned at Male 05/11/2021 1:04 PM EST Legal Sex Male 12:35 PM EST Gender Identity Male 05/11/2021 1:04 PM EST Sexual Orientation Not on file documented as of this encounter Functional Status * Calculated C-SSRS Risk Score (Lifetime/Recent) Answer Date of Assessment Author No Risk Indicated 05/11/2021 1:04 PM Leigh Ann Hooks RN * [place] Suicide Severity Rating Scale (Screener/Recent Self-Report) Question Answer Date of Assessment Author 1. Wish to be (Past 1 Month) No 022 1:04 PM Leigh Ann Hooks RN 2. Non-Specific Active Suici james Thoughts (Past 1 Month) No 05/11/2021 1:04 PM Leigh Ann Hooks , ATTILA 6. Suicidal Behavior (Lifetime) No 1:04 PM Leigh Ann Hooks, ATTILA documented as of this encounter Plan of Treatment Upcoming Encounters Date Type Department Care Team (Late st Contact Info) Description 02/01/2025 Procedure Pass [address] [address] 02/01/2025 Procedure Pass [address] [address] 02/01/2025 Procedure Pass [address] [address] 07/21/2025 12:15 PM EDT Appointment [address] [address] Morena Gongora MBBS [address] [place] [address] [email or web address] 08/02/2025 10:40 AM EDT Office Visit [facility] at [address] [address] Morena Gongora MBBS [address] [place] [address] [email or web address] documented as of this encounter Visit Diagnoses Not on filedocumented in this encounter Additional Health Concerns Infection Onset Date Last Indicated Resolved Time CoV-Risk 04/24/2022 04/24/2022 04/24/2022 11:4 5 AM EST COVID-19 04/24/2022 04/24/2022 05/15/2022 1:23 AM EST documented as of this encounter Care Teams Rn Pediatric Icu Relationship Specialty Start Date End Date Pcp, Unknown PCP - General 05/11/21 05/12/21 Ld Thorne MD [address] [place] [address] PCP - General Internal Medicine 05/13/21 Kody Grady MD [address] [place] [address] [address] [place] [address] [email or web address] Primary Oncologist Medical Oncology 05/16/22 Jes Godoy NP [address] [place] [address] [email or web address] Nurse Practitioner Medical Oncology 06/29/22 04/01/24 Morena Gongora MBBS [address] [place] [address] [email or web address] Internal Medicine 01/25/25 documented as of this encounter Additional Source Comments The information contained in this document represents components of the legal health record. It is not the complete legal health record.[facility]
--- OUTSIDE RECORDS SUMMARY | 2025-02-04 16:32 | XMS_ITS | Encounter Summary ---
Author Organization [facility] Address [address] [place] [address] Phone Care Team Providers Care Search Consultant Name Role Phone Pcp, Unknown Primary Care Provider Unavailabl Ld Khanna MD Primary Care Provider + Kody Grady MD Unavailable [phone] Jes Godoy NP Unavailable [phone] Morena Gongora Unavailable [phone] Encounter Details Date Type Department Care Team (Late st Contact Info) Description 05/11/2021 Procedure Pass [facility], Ct Scan - [address] [address] Social History Tobacco Use Types Packs/Day Years [...] 1:04 PM Leigh Ann Hooks RN * [place] Suicide Severity Rating Scale (Screener/Recent Self-Report) Question Answer Date of Assessment Author 1. Wish to be (Past 1 Month) No 022 1:04 PM Leigh Ann Hooks, ATTILA 2. Non-Specific Active Suici james Thoughts (Past 1 Month) No 05/11/2021 1:04 PM Leigh Ann Hooks , ATTILA 6. Suicidal Behavior (Lifetime) No 1:04 PM Leigh Ann Hooks, ATTILA documented as of this encounter Plan of Treatment Upcoming Encounters Date Type Department Care Team (Late st Contact Info) Description 02/01/2025 Procedure Pass [address] [address] 02/01/2025 Procedure Pass [address] [address] 02/01/2025 Procedure Pass [address] [address] 07/21/2025 12:15 PM EDT Appointment [address] [address] Morena Gongora MBBS [address] [place] [address] [email or web address] 08/02/2025 10:40 AM EDT Office Visit [facility] at [address] [address] Morena Gongora MBBS [address] [place] [address] [email or web address] documented as of this encounter Visit Diagnoses Not on filedocumented in this encounter Additional Health Concerns Infection Onset Date Last Indicated Resolved Time CoV-Risk 04/24/2022 04/24/2022 04/24/2022 11:4 5 AM EST COVID-19 04/24/2022 04/24/2022 05/15/2022 1:23 AM EST documented as of this encounter Care Teams Search Consultant Relationship Specialty Start Date End Date Pcp, Unknown PCP - General 05/11/21 05/12/21 Ld Thorne MD [address] [place] [address] PCP - General Internal Medicine 05/13/21 Kody Grady MD [address] [place], [place] [address] [address] [place] [address] [email or web address] Primary Oncologist Medical Oncology 05/16/22 Jes Godoy NP [address] [place] [address] [email or web address] Nurse Practitioner Medical Oncology 06/29/22 04/01/24 Morena Gongora MBBS [address] [place] [address] [email or web address] Internal Medicine 01/25/25 documented as of this encounter Additional Source Comments The information contained in this document represents components of the legal health record. It is not the complete legal health record.[facility]
--- OUTSIDE RECORDS SUMMARY | 2025-02-04 16:32 | XMS_ITS | Encounter Summary ---
Author Organization [facility] Address [address] [place] [address] Phone Care Team Providers Care Security Police Officer Name Role Phone Ld Thorne MD Primary Care Provider + Kody Grady MD Unavailable [phone] Morena Gongora Unavailable [phone] Encounter Details Date Type Department Care Team (Late st Contact Info) Description 04/09/2024 Procedure Pass [facility], Ct Scan - [facility] [address] [place] [address] Social History Tobacco Use Types Packs/Day Years [...] Contact Info) Description 02/01/2025 Procedure Pass [address] [address] 02/01/2025 Procedure Pass [address] [address] 02/01/2025 Procedure Pass [address] [address] 07/21/2025 12:15 PM EDT Appointment [address] [address] Morena Gongora MBBS [address] [place] [address] [email or web address] 08/02/2025 10:40 AM EDT Office Visit [facility] at [address] [address] Morena Gongora MBBS [address] [place] [address] [email or web address] documented as of this encounter Visit Diagnoses Not on filedocumented in this encounter Care Teams Security Police Officer Relationship Specialty Start Date End Date Ld Thorne MD [address] [place] [phone] PCP - General Internal Medicine 05/13/21 Kody Grady MD [address] [place] [address] [address] [place] [address] [email or web address] Primary Oncologist Medical Oncology 05/16/22 Morena Gongora MBBS [address] [place] [address] [email or web address] Internal Medicine 01/25/25 documented as of this encounter Additional Source Comments The information contained in this document represents components of the legal health record. It is not the complete legal health record.[facility]
--- OUTSIDE RECORDS SUMMARY | 2025-02-04 16:32 | XMS_ITS | Encounter Summary ---
Author Organization [facility] Address [address] [place] [address] Phone Care Team Providers Care Control Chemist Name Role Phone Ld Thorne MD Primary Care Provider + Kody Grady MD Unavailable [phone] Jes Godoy NP Unavailable [phone] Morena Gongora MBBS Unavailable [phone] Encounter Details Date Type Department Care Team (Late st Contact Info) Description 09/12/2023 Procedure Pass [facility], Ct Scan - [address] [address] Social History Tobacco Use Types Packs/Day Years [...] st Contact Info) Description 02/01/2025 Procedure Pass [address] [address] 02/01/2025 Procedure Pass [address] [address] 02/01/2025 Procedure Pass [address] [address] 07/21/2025 12:15 PM EDT Appointment [address] [address] Morena Gongora MBBS [address] [place] [address] [email or web address] 08/02/2025 10:40 AM EDT Office Visit [facility] at [address] [address] Morena Gongora MBBS [address] [place] [address] [email or web address] documented as of this encounter Visit Diagnoses Not on filedocumented in this encounter Care Teams Control Chemist Relationship Specialty Start Date End Date Ld Thorne MD [address] [place] [address] PCP - General Internal Medicine 05/13/21 Kody Grady MD [address] [place] [address] [address] [place] [address] [email or web address] Primary Oncologist Medical Oncology 05/16/22 Jes Godoy NP [address] [place] [address] [email or web address] Nurse Practitioner Medical Oncology 06/29/22 04/01/24 Morena Gongora MBBS [address] [place] [address] [email or web address] Internal Medicine 01/25/25 documented as of this encounter Additional Source Comments The information contained in this document represents components of the legal health record. It is not the complete legal health record.[facility]
--- OUTSIDE RECORDS SUMMARY | 2025-02-04 16:32 | XMS_ITS | Encounter Summary ---
Author Organization [facility] Address [address] [place] [address] Phone Care Team Providers Care Stock Preparation Operator Name Role Phone Ld Thorne MD Primary Care Provider + Kody Grady MD Unavailable [phone] Jes Godoy NP Unavailable [phone] Morena Gongora MBBS Unavailable [phone] Encounter Details Date Type Department Care Team (Late st Contact Info) Description 09/12/2023 Procedure Pass [facility], Ct Scan - [address] [address] Social History Tobacco Use Types Packs/Day Years [...] st Contact Info) Description 02/01/2025 Procedure Pass [address] [address] 02/01/2025 Procedure Pass [address] [address] 02/01/2025 Procedure Pass [address] [address] 07/21/2025 12:15 PM EDT Appointment [address] [address] Morena Gongora MBBS [address] [place] [address] [email or web address] 08/02/2025 10:40 AM EDT Office Visit [facility] at [address] [address] Morena Gongora MBBS [address] [place] [address] [email or web address] documented as of this encounter Visit Diagnoses Not on filedocumented in this encounter Care Teams Stock Preparation Operator Relationship Specialty Start Date End Date Ld Thorne MD [address] [place] [address] PCP - General Internal Medicine 05/13/21 Kody Grady MD [address] [place] [address] [address] [place] [address] [email or web address] Primary Oncologist Medical Oncology 05/16/22 Jes Godoy NP [address] [place] [address] [email or web address] Nurse Practitioner Medical Oncology 06/29/22 04/01/24 Morena Gongora MBBS [address] [place] [address] [email or web address] Internal Medicine 01/25/25 documented as of this encounter Additional Source Comments The information contained in this document represents components of the legal health record. It is not the complete legal health record.[facility]
--- OUTSIDE RECORDS SUMMARY | 2025-02-04 16:32 | XMS_ITS | Encounter Summary ---
Author Organization [facility] Address [address] [place] [address] Phone Care Team Providers Care Investigation Lieutenant Name Role Phone Ld Thorne MD Primary Care Provider + Kody Grady MD Unavailable [phone] Jes Godoy NP Unavailable [phone] Morena Gongora MBBS Unavailable Encounter Details Date Type Department Care Team (Late st Contact Info) Description 09/12/2023 Procedure Pass [facility], Ct Scan - [address] [address] Social History Tobacco Use Types Packs/Day Years [...] st Contact Info) Description 02/01/2025 Procedure Pass [address] [address] 02/01/2025 Procedure Pass [address] [address] 02/01/2025 Procedure Pass [address] [address] 07/21/2025 12:15 PM EDT Appointment [address] [address] Morena Gongora MBBS [address] [place] [phone] [email or web address] 08/02/2025 10:40 AM EDT Office Visit [facility] at [address] [address] Morena Gongora MBBS [address] [place] [address] [email or web address] documented as of this encounter Visit Diagnoses Not on filedocumented in this encounter Care Teams Investigation Lieutenant Relationship Specialty Start Date End Date Ld Thorne MD [address] [place] [address] PCP - General Internal Medicine 05/13/21 Kody Grady MD [address] [place] [address] [address] [place] [address] [email or web address] Primary Oncologist Medical Oncology 05/16/22 Jes Godoy NP [address] [place] [address] [email or web address] Nurse Practitioner Medical Oncology 06/29/22 04/01/24 Morena Gongora MBBS [address] [place] [address] [email or web address] Internal Medicine 01/25/25 documented as of this encounter Additional Source Comments The information contained in this document represents components of the legal health record. It is not the complete legal health record.[facility]
--- OUTSIDE RECORDS SUMMARY | 2025-02-04 16:32 | XMS_ITS | Clinical Summary ---
Author Organization [facility] Address [address] [place] [address] Phone Care Team Providers Care Foreign Exchange Student Coordinator Name Role Phone Ld Thorne MD Primary Care Provider + Koyd Grady MD Unavailable [phone] Morena Gongora Unavailable [phone] Allergies No known active allergies Medications hydroCHLOROthia zide (HYDRODIURIL) 12.5 MG tablet Take 12.5 mg by mouth daily. Active METOPROLOL TARTRATE ORAL Take 50 mg by mouth 2 (two) times a day. Active lisinopril (PRINIVIL,ZESTR IL) 10 MG tablet Take 10 mg by mouth daily. Active pravastatin (PRAVACHOL) 20 MG tablet Take 20 mg by mouth daily. Active acetaminophen (TYLENOL) 325 mg tablet Take 2 tablets (650 mg total) by mouth every 6 (six) hours as needed for mild pain. 0 05/13/2021 Active amLODIPine (NORVASC) 10 MG tablet Take 10 mg by mouth daily. 11/13/2021 Active Active Problems Patient Care Coordination No te [...] few weeks No other B sx 03/15/[address] [facility] [address] scans: 16 cm spleen Thickened GE junction->EGD neg 1 cm L thyroid nodule-->thyroid US done at MD Large heart No chest LAD Extensive portacaval, [...] Post-operative state 01/11/2022 Small bowel obstruction 05/11/2021 Encounters Date Type Department Care Team Description 02/01/2025 11:00 AM EST Office Visit [facility] at [address] [address] Morena Gongora, DHARA Marginal zone B-cell lymphoma (Primary Dx); Thyroid nodule 01/26/2025 10:20 AM EDT - 01/26/2025 11:59 PM EDT Hospital Encounter [facility], [address] [address] Morena Gongora MBBS Discharge Disposition: Home or Self Care 01/26/2025 10:07 AM EDT - 01/26/2025 10:19 AM EDT Hospital Encounter [facility] [address] [place] [phone] Morena Gongora, DHARA Discharge Disposition: Home or Self Care 07/30/2024 Procedure Pass [facility], [address] [address] 07/30/2024 Procedure Pass [facility], [address] [address] 07/30/2024 Procedure Pass [address] [address] from Last 3 Months Immunizations Immunization Administration Dates Next Due COVID-19 (Pre-01/21) Moderna Vaccine, mRNA, PF 11/02/2022,09/08/2021,02/20/2021 COVID-19 (Pre-01/21) Pfizer Vaccine, mRNA, PF 06/04/2020 COVID-19 Moderna Spikevax Vaccine 12+ 01/28/2024 ,10/28/2023,04/29/2023 COVID-19, Unspecified Formulation 11/02/2022 DTaP, unspecified formulation 12/31/2013 INFLUENZA, SPLIT VIRUS, TRIVALENT PF 01/30/2017, 01/18/2015,12/31/2013 INFLUENZA, SPLIT VIRUS, TRIV ALENT W/ PRESERVATIVE IM 01/30/2017 Influenza High-Dose Quadriva lent Preservative Free IM 01/09/2023,02/16/2020 Influenza High-Dose Trivalen t Preservative Free IM 01/28/2024 Influenza Quadrivalent Adjuv anted Preservative Free IM 02/19/2022,02/20/2021 Influenza Trivalent Adjuvant ed Preservative free IM 01/26/2019,01/28/2018 Influenza, Unspecified Formulation 01/27,01/09/2023,02/06/2016,01/18,12/31/2013,04/08/2003,01/29/2002 Pneumococcal conjugate PCV13 01/18/2015 Pneumococcal polysaccharide PPSV23 12/31/2013 RSV Vaccine (bivalent) 04/29/2023 RSV Vaccine, Unspecified 04/29/2023 Td (adult),2 Lf Tetanus Toxo id, PF, Adsorbed 07/30/2023 Td, unspecified formulation 07/30/2023 Tdap 12/31/2013 Zoster live 08/15/2015 Zoster recombinant 01/28/2018,07/30/2017 Family History Medical History Relation Comments Pancreatic cancer Mother Breast cancer Sister Relation Status Comments Father Mother Sister Alive Social History Tobacco Use Types Packs/Day Years Used Date Smoking Tobacco: Former Cigars 1 5 - 1998 Smokeless Tobacco: Never Comments:1.5 ppd [...] file Not on file Not on file Last Filed Vital Signs Vital Sign Reading Time Taken Comments Blood Pressure 149/70 02/01/2025 10:45 AM EST Pulse 52 02/01/2025 10:45 AM EST Temperature 36.1 C (97 F) 02/01/2025 10:45 AM EST Respiratory Rate 18 03/08/2023 10:2 0 AM EST Oxygen Saturation 98% 02/01/2025 10: 45 AM EST Inhaled Oxygen Concentration - - Weight 68.9 kg (151 lb 12.8 oz) 025 10:45 AM EST Height 167.8 cm (5' 6.06 ) 02/01/2025 1 0:45 AM EST Body Mass Index 24.45 02/01/2025 10:45 AM EST Plan of Treatment Upcoming Encounters Date Type Department Care Team (Late st Contact Info) Description 02/01/2025 Procedure Pass [address] [address] 02/01/2025 Procedure Pass [address] [address] 02/01/2025 Procedure Pass [address] [address] 07/21/2025 12:15 PM EDT Appointment [address] [address] Morena Gongora MBBS [address] [place] [id number] [email or web address] 08/02/2025 10:40 AM EDT Office Visit [facility] at [address] [address] Morena Gongora MBBS [address] [place] [phone] [email or web address] Health Maintenance Due Date Last Done Comments LIPID PANEL 1945 DEPRESSION SCREENING 1959 COVID-19 VACCINE ( season) 2024 08/26/2024, 01/28/2024, 10/28/2023, Additional history exists CREATININE LEVEL 01/26/2026 01/26/2025, , 04/02/2024, Additional history exists POTASSIUM LEVEL 01/26/2026 01/26/2025, 07/01, 04/02/2024, Additional history exists SMOKING Hx and SMOKELESS TOBACCO SCREENING 02/01/2026 02/01/2025 Adult Td,Tdap Booster 07/29/2033 07/30/2023 , 07/30/2023, 12/31/2013 ZOSTER VACCINES Completed 01/28/2018, 050 04/2017, 08/15/2015 HEPATITIS C SCREENING Completed 05/17/2022 , 05/17/2022, 05/17/2022 RSV VACCINE Completed 04/29/2023, 04/29/2023 INFLUENZA VACCINE Completed 12/28/2024, , 01/28/2024, Additional history exists PNEUMOCOCCAL VACCINES (50+ years) Completed 12/28/2024, 01/18/2015, 12/31/2013 HEPATITIS A VACCINES Aged Out No long er eligible based on patient's age to complete this topic HIB VACCINES Aged Out No longer eligi ble based on patient's age to complete this topic MENINGOCOCCAL VACCINES (ACWY) Aged Out No longer eligible based on patient's age to complete this topic MENINGOCOCCAL VACCINES (B) Aged Out N o longer eligible based on patient's age to complete this topic Medical Devices Implanted Type Area Recruitment Coordinator Device Identifier Shelf Expiration Date Model / Serial / Lot Mesh Surgical 15cm 8 Hernia Prolene Polypropylene Nonabsorbable Repair Bx/6ea - [id number] Implanted:Qty: 1 on 05/11/2021 by Steffen Gee MD at [facility] STANDARD Right: Groin [employer] / DIVISION OF J 05/29/2025 [id number] / / [id number] Mesh Synthetic 10cmx2.54 Abdominal Non Absorbable Rectangle Polypropylene Prolene Bx/6ea - [id number] Implanted:Qty: 1 on 01/11/2022 by Steffen Gee MD at [facility] Left: Inguinal [employer] / DIVISION OF J [id number] 11/30/2023 PMXS / / [id number] Procedures Procedure Name Priority Date/Time Associated Diagnosis Comments CT ABDOMEN/PELVIS WITH CONTRAST Routine 01/26/2025 11:43 AM EDT Marginal zone B-cell lymphoma CT CHEST WITH CONTRAST Routine 11:43 AM EDT Marginal zone B-cell lymphoma CT NECK SOFT TISSUE WITH CONTRAST Routine 01/26/2025 11:43 AM EDT Marginal zone B-cell lymphoma LDH Routine 01/26/2025 10:07 AM EDT Marginal zone B-cell lymphoma COMPREHENSIVE METABOLIC PANEL (CMP) Routine 01/26/2025 10:07 AM EDT Marginal zone B-cell lymphoma CBC AND DIFFERENTIAL Routine 01/26/2025 10:07 AM EDT Marginal zone B-cell lymphoma HEPATITIS C ANTIBODY, QUALITATIVE Routine 05/17/2022 11:37 AM EST Non-Hodgkin lymphoma of lymph nodes of multiple regions, unspecified non-Hodgkin lymphoma type from Last 3 Months or Most Recently Relevant to Health Maintenance Results * CT CHEST WITH CONTRAST (01/26/2025 11:43 AM EDT) Anatomical Region Laterality Modality Chest Computed Tomogra phy 02/01/2025 12:1 5 PM EST Impressions 02/01/2025 1:28 PM EST 1. Increased size of a left supraclavicular lymph node. 2. New clustered nodularity in the left lower lobe, favors an infectious/inflammatory etiology such as aspiration. Consider a follow-up low-dose chest CT in 3 months or as per clinical protocol. Narrative 02/01/2025 1:[address] CHEST WITH CONTRAST Referring clinician's provided indication for this examination in [facility]: *Hematologic malignancy, surveillance TECHNIQUE: Multidetector CT of the chest was performed with intravenous contrast using tailored dose modulation techniques. COMPARISON: CT CHEST WITH CONTRAST FINDINGS: Devices/Tubes/Lines: None. Lungs: Evaluation is degraded by respiratory motion artifact. There is new clustered nodularity in the left lower lobe measuring up to 5 mm (4:172). Unchanged additional scattered pulmonary nodules including a 3 mm right lower lobe nodule (4:225) and a 3 mm subpleural left lower lobe nodule (4:201). No focal consolidation. Patent central airways. Pleura: No pleural effusion or pneumothorax. Mediastinum: Concurrent neck CT reported separately. No pericardial effusion. Severe amount of coronary calcifications. Unchanged hypodense left thyroid nodule. Similar enlarged main pulmonary artery measuring 3.4 cm, can be seen with pulmonary hypertension. Lymph Nodes: Increased left supraclavicular lymph node measuring 12 mm (4:65), previously 7 mm. Upper Abdomen: Please see concurrent abdominal CT for abdominal findings. Chest Wall: No suspicious chest wall mass. Bones: No destructive osseous lesions. Degenerative changes are in the imaged spine including multilevel contiguous bridging of anterior osteophytes. Procedure Note Gila Laurent MD - 02/01/2025 CT CHEST WITH CONTRAST Referring clinician's provided indication for this examination in [facility]:*Hematologic malignancy, surveillance TECHNIQUE: Multidetector CT of the chest was performed with intravenouscontrast using tailored dose modulation techniques. COMPARISON: CT CHEST WITH CONTRAST FINDINGS: Devices/Tubes/Lines: None. Lungs: Evaluation is degraded by respiratory motion artifact. There is newclustered nodularity in the left lower lobe measuring up to 5 mm (4:172).Unchanged additional scattered pulmonary nodules including a 3 mm rightlower lobe nodule (4:225) and a 3 mm subpleural left lower lobe nodule(4:201). No focal consolidation. Patent central airways. Pleura: No pleural effusion or pneumothorax. Mediastinum: Concurrent neck CT reported separately. No pericardialeffusion. Severe amount of coronary calcifications. Unchanged hypodenseleft thyroid nodule. Similar enlarged main pulmonary artery measuring 3.4cm, can be seen with pulmonary hypertension. Lymph Nodes: Increased left supraclavicular lymph node measuring 12 mm(4:65), previously 7 mm. Upper Abdomen: Please see concurrent abdominal CT for abdominalfindings. Chest Wall: No suspicious chest wall mass. Bones: No destructive osseous lesions. Degenerative changes are in theimaged spine including multilevel contiguous bridging of anteriorosteophytes. IMPRESSION: 1. Increased size of a left supraclavicular lymph node. 2. New clustered nodularity in the left lower lobe, favors aninfectious/inflammatory etiology such as aspiration. Consider a dcalwa-iqzsk-mjro chest CT in 3 months or as per clinical protocol. us Morena JULES IMG CT CHEST Final Resu lt * CT ABDOMEN/PELVIS WITH CONTRAST (01/26/2025 11:43 AM EDT) Anatomical Region Laterality Modality Abdomen, Pelvis Computed Tomogra phy 02/01/2025 12:1 7 PM EST Impressions 02/01/2025 12:24 PM EST 1. No abdominal or pelvic lymphadenopathy. 2. No splenomegaly. Narrative 02/01/2025 12:[address] ABDOMEN/PELVIS WITH CONTRAST Referring clinician's provided indication for this examination in [facility]: *Hematologic malignancy, surveillance TECHNIQUE: Multidetector-row CT of the abdomen and pelvis was performed after administration of intravenous contrast using tailored dose modulation techniques. Images were reconstructed in the axial, coronal, and sagittal planes. COMPARISON: CT ABDOMEN/PELVIS WITH CONTRAST FINDINGS: Lower Chest: CT chest from the same day is reported separately. Liver: Normal. No focal lesions. Biliary: Normal. No biliary ductal dilatation. Spleen: Normal. No splenomegaly or focal lesions. Pancreas: Normal. No masses or ductal dilatation. Adrenal Glands: Normal. No nodules. Kidneys/Ureters: Normal. No solid masses, stones, or hydronephrosis. Bowel: Colonic diverticulosis. Unremarkable appendix and terminal ileum. No bowel obstruction or inflammation. Peritoneum/Retroperitoneum: Normal. No masses, pneumoperitoneum, or fluid. Lymph Nodes: Normal. No lymphadenopathy. Pelvic Organs/Bladder: Normal. No mass. Vessels: Patent main portal vein. No abdominal aortic aneurysm. Severe atherosclerotic calcification. Bones/Soft Tissues: Mild gynecomastia. Facet arthropathy. Undermineralization. S1 lumbarization. Severe L5-S1 degenerative disc disease. No acute or aggressive osseous abnormality. Exam degraded by motion artifact and body habitus. Procedure Note Lashawn Hendrix MD - 02/01/2025 CT ABDOMEN/PELVIS WITH CONTRAST Referring clinician's provided indication for this examination in Epic:*Hematologic malignancy, surveillance TECHNIQUE: Multidetector-row CT of the abdomen and pelvis was performedafter administration of intravenous contrast using tailored dosemodulation techniques. Images were reconstructed in the axial, coronal,and sagittal planes. COMPARISON: CT ABDOMEN/PELVIS WITH CONTRAST FINDINGS: Lower Chest: CT chest from the same day is reported separately. Liver: Normal. No focal lesions. Biliary: Normal. No biliary ductal dilatation. Spleen: Normal. No splenomegaly or focal lesions. Pancreas: Normal. No masses or ductal dilatation. Adrenal Glands: Normal. No nodules. Kidneys/Ureters: Normal. No solid masses, stones, or hydronephrosis. Bowel: Colonic diverticulosis. Unremarkable appendix and terminal ileum.No bowel obstruction or inflammation. Peritoneum/Retroperitoneum: Normal. No masses, pneumoperitoneum, orfluid. Lymph Nodes: Normal. No lymphadenopathy. Pelvic Organs/Bladder: Normal. No mass. Vessels: Patent main portal vein. No abdominal aortic aneurysm. Severeatherosclerotic calcification. Bones/Soft Tissues: Mild gynecomastia. Facet arthropathy.Undermineralization. S1 lumbarization. Severe L5-S1 degenerative discdisease. No acute or aggressive osseous abnormality. Exam degraded by motion artifact and body habitus. IMPRESSION: 1. No abdominal or pelvic lymphadenopathy. 2. No splenomegaly. Morena JULES IMG CT ABD/PELVIS Final Re sult * CT NECK SOFT TISSUE WITH CONTRAST (01/26/2025 11:43 AM EDT) Anatomical Region Laterality Modality Neck Computed Tomogra phy 01/27/2025 3:18 PM EDT Impressions 01/27/2025 3:33 PM EDT 1. No new enlarged or enlarging lymph nodes. 2. Left thyroid lobe nodule, unchanged. Narrative 01/27/2025 3:[address] NECK SOFT TISSUE WITH CONTRAST Referring clinician's provided indication for this examination in [facility]: *Hematologic malignancy, surveillance TECHNIQUE: Multidetector-row CT of the neck was performed with intravenous contrast using tailored dose modulation techniques. Images were reconstructed in the axial, coronal, and sagittal planes. COMPARISON: CT scan of the neck July 20, 2024. FINDINGS: Aerodigestive Tract: The mucosa appears grossly symmetrical. Lymph Nodes: Left supraclavicular lymph node measuring 1.3 x 1.6 cm, without gross significant change since June 2024 and since October 2023. There are no new enlarged or enlarging lymph nodes. Salivary Glands: No obvious lesion is present. Thyroid Gland: Hypoattenuated/hypoenhancing nodule is again seen in the left thyroid lobe measuring up to 1.2 cm, stable. Vessels: The major cervical vessels enhance normally. There is extensive calcified plaque in the carotid bulbs bilaterally. Paranasal Sinuses and Mastoids: The paranasal sinuses and mastoid air cells are well-aerated. Brain and Orbits: Within the limits of motion artifact and technique, no abnormal enhancement or acute abnormality is detected in the imaged portions of the brain and orbits. Lung Apices: No consolidation or suspicious opacity. There is atherosclerotic plaque in the aortic arch with mild ectasia of the ascending aorta. Bones and Soft Tissues: There are degenerative changes in the spine and multiple levels. No suspicious osseous lesions are present. Procedure Note Christos Briones MD - 01/27/2025 CT NECK SOFT TISSUE WITH CONTRAST Referring clinician's provided indication for this examination in [facility]:*Hematologic malignancy, surveillance TECHNIQUE: Multidetector-row CT of the neck was performed with intravenouscontrast using tailored dose modulation techniques. Images werereconstructed in the axial, coronal, and sagittal planes. COMPARISON: CT scan of the neck July 20, 2024. FINDINGS: Aerodigestive Tract: The mucosa appears grossly symmetrical. Lymph Nodes: Left supraclavicular lymph node measuring 1.3 x 1.6 cm,without gross significant change since June 2024 and since October 2023.There are no new enlarged or enlarging lymph nodes. Salivary Glands: No obvious lesion is present. Thyroid Gland: Hypoattenuated/hypoenhancing nodule is again seen in theleft thyroid lobe measuring up to 1.2 cm, stable. Vessels: The major cervical vessels enhance normally. There is extensivecalcified plaque in the carotid bulbs bilaterally. Paranasal Sinuses and Mastoids: The paranasal sinuses and mastoid aircells are well-aerated. Brain and Orbits: Within the limits of motion artifact and technique, noabnormal enhancement or acute abnormality is detected in the imagedportions of the brain and orbits. Lung Apices: No consolidation or suspicious opacity. There isatherosclerotic plaque in the aortic arch with mild ectasia of theascending aorta. Bones and Soft Tissues: There are degenerative changes in the spine andmultiple levels. No suspicious osseous lesions are present. IMPRESSION: 1. No new enlarged or enlarging lymph nodes. 2. Left thyroid lobe nodule, unchanged. Morena JULES IMG CT XSPECIALTY ORDERABL ES Final Result * LDH (01/26/2025 10:07 AM EDT) LDH 185 118 - 273 U/L [facility] Blood 01/26/2025 10:0 7 AM EDT 01/26/2025 10:12 AM EDT Morena JULES LAB BLOOD BKR ORDERABLES F inal Result [facility] [address] [place] [address] * (ABNORMAL) Comprehensive metabolic panel (01/26/2025 10:07 AM EDT) SODIUM 140 133 - 146 mmol/L [facility] POTASSIUM 4.4 3.3 - 5.1 mmol/L [facility] CHLORIDE 102 96 - 108 mmol/L [facility] CO2 27 21 - 35 mmol/L [facility] BUN 16 6 - 19 mg/dL [facility] CREATININE 1.10 0.5 - 1.5 mg/dL [facility] GLUCOSE 106(H) 70 - 99 mg/dL [facility] ALBUMIN 4.3 3.9 - 4.8 g/dL [facility] TOTAL PROTEIN 6.7 6.5 - 8.0 g/dL [facility] CALCIUM 9.8 8.4 - 10.3 mg/dL [facility] ALKALINE PHOSPHATASE 63 39 - 117 U/L [facility] TOTAL BILIRUBIN 0.8 0.0 - 1.2 mg/dL [facility] AST 12 0 - 37 U/L [facility] ALT 7 0 - 40 U/L [facility] GLOBULIN 2.4 1 - 4.8 g/dL [facility] EGFR 69 >59 mL/min/1.7 3m2 [facility] Comment:Estimated glomerular filtration rate calculated using the CKD-EPI refit equation. ANION GAP 15 10 - 20 mmol/L [facility] Blood 01/26/2025 10:0 7 AM EDT 01/26/2025 10:12 AM EDT us Morena Gongora MBBS LAB BLOOD BKR ORDERABLES F inal Result [address] [address] * (ABNORMAL) CBC and differential (01/26/2025 10:07 AM EDT) WBC 10.96 4.00 - 11.00 K/uL [facility] RBC 4.54 4.50 - 5.90 M/uL [facility] HGB 13.0(L) 13.5 - 17.5 g/dL [facility] HCT 39.8(L) 41.0 - 53.0 % [facility] PLT 182 150 - 450 K/uL [facility] MCV 87.7 80.0 - 100.0 fL [facility] MCH 28.6 27.0 - 31.0 pg [facility] MCHC 32.7 32.0 - 36.0 g/dL [facility] RDW 13.3 11.5 - 14.5 % [facility] MPV 9.3 8.4 - 12.0 fL [facility] NRBC 0.00 0.00 /100 WBCs [facility] ABSOLUTE NRBC 0.00 0.00 K/uL [facility] DIFF METHOD Auto [facility] NEUTS 75.2 48.0 - 76.0 % [facility] LYMPHS 13.7(L) 18.0 - 41.0 % [facility] MONOS 7.7 4.0 - 11.0 % [facility] EOS 2.4 0.0 - 5.0 % [facility] BASOS 0.6 0.0 - 1.5 % [facility] Granulocytes, immature (%) 0.4 0.0 - 0.9 % [facility] ABSOLUTE NEUTS 8.25(H) 1.92 - 7.60 K/uL [facility] ABSOLUTE LYMPHS 1.50 0.72 - 4.10 K/uL [facility] ABSOLUTE MONOS 0.84 0.16 - 1.10 K/uL [facility] ABSOLUTE EOS 0.26 0.00 - 0.50 K/uL [facility] ABSOLUTE BASOS 0.07 0.00 - 0.15 K/uL [facility] Granulocytes, immature 0.04 0.00 - 0.09 K/uL [facility] Blood 01/26/2025 10:0 7 AM EDT 01/26/2025 10:12 AM EDT us Morena Gongora MBBS LAB BLOOD BKR ORDERABLES F inal Result [facility] [address] [place] [address] * Hepatitis C antibody, qualitative (05/17/2022 11:37 AM EST) HCV NON-REACTIV E NON-REACTI VE [facility] Blood 05/17/2022 11:3 7 AM EST 05/17/2022 11:53 AM EST us oKdy Grady MD LAB BLOOD BKR ORDERABLES Myriam palmer Result [facility] [address] [place] [address] from Last 3 Months or Most Recently Relevant to Health Maintenance Insurance [facility] & B [facility] Care Teams Foreign Exchange Student Coordinator Relationship Specialty Start Date End Date Ld Thorne MD [address] [place] [address] PCP - General Internal Medicine 05/13/21 Kody Grady MD [address] [place] [address] [address] [place] [address] [email or web address] Primary Oncologist Medical Oncology 05/16/22 Morena Gongora MBBS [address] [place] [id number] [email or web address] Internal Medicine 01/25/25 Additional Source Comments The information contained in this document represents components of the legal health record. It is not the complete legal health record.[facility]
== END 2025-02-04 13:35 | disposition home or self-care (01) ==
LOC: HO.NEURO 13:34
PROVIDERS: PCP Internal Medicine; Visit Provider Internal Medicine
DX: G60.3 Idiopathic progressive neuropathy (principal); R20.0 Anesthesia of skin; M79.621 Pain in right upper arm; M79.661 Pain in right lower leg
CPT/HCPCS: 95886; 95913

== ENCOUNTER → 2025-02-04 14:00 | Outpatient (BNV) | payer OTHER, SELFPAY | PROVIDERS: PCP Internal Medicine; Visit Provider Psychiatry & Neurology Neurology | DX: G56.01 Carpal tunnel syndrome, right upper limb (principal); G62.89 Other specified polyneuropathies | CPT/HCPCS: 95886; 95913 ==